=== PATIENT | male | born 1995 | race Caucasian/White ===

== ENCOUNTER 2018-01-19 17:41 | Emergency (ER) | payer OTHER ==
[2018-01-19 17:48] VITALS: BP 132/90
[2018-01-19] MEDS ORDERED: Tetan/Diph/Pertus SYR(Tdap)* 0.5 ML SYR(BOOSTRIX) use SYR IM ONE (19:07)
--- NOTE | 2018-01-19 19:14 | ED ---
Laceration/Wound HPI - HPI Summary HPI Summary: Patient is a 22-year-old male who presents emergency department for a laceration to his left thumb that occurred just prior to arrival. Patient states he was taking glass out of a window pane when the glass broke and cut thumb. He is unaware of his last tetanus immunization. Past medical history of type 1 diabetes. Patient thinks there could possibly be piece of glass in the wound. Symptoms are mild in severity. Touching wound makes symptoms worse. Rest makes symptoms better. - History of Current Complaint Stated Complaint: LT THUMB LAC Time Seen by Provider: 01/19/18 18:39 Hx Obtained From: Patient Pain Intensity: 2 - Allergy/Home Medications Allergies/Adverse Reactions: Allergies Allergy/AdvReac Type Severity Reaction Status Date / Time No Known Allergies Allergy Verified 01/19/18 17:48 Home Medications: Home Medications Insulin ASPART (NF) [Novolog (NF)] 0 units SUBCUT .CONSTANT VIA PUMP 01/19/18 [ History Confirmed 01/19/18] PMH/Surg Hx/FS Hx/Imm Hx Previously Healthy: Yes Infectious Disease History: No Infectious Disease History: Denies: Traveled Outside the [place] in Last 30 Days - Social History Alcohol Use: None Substance Use Type: Reports: Marijuana Substance Use Comment - Amount & Last Used: occas Smoking Status (MU): Never Smoked Tobacco Review of Systems Positive: Other - laceration to left thumb Positive: Other - laceration to left thumb Negative: Weakness, Paresthesia, Numbness All Other Systems Reviewed And Are Negative: Yes Physical Exam Triage Information Reviewed: Yes Vital Signs On Initial Exam: Initial Vitals Temp Pulse Resp BP Pulse Ox 99.0 F 94 17 132/90 98 01/19/18 17:45 01/19/18 17:45 01/19/18 17:45 01/19/18 17:45 01/19/18 17:45 Vital Signs Reviewed: Yes Appearance: Positive: Well-Appearing - Patient sitting up in bed in no acute distress. Skin: Positive: Warm, Dry Head/Face: Positive: Normal Head/Face Inspection Eyes: Positive: Normal Neck: Positive: Supple Musculoskeletal: Positive: Other - Less than 1 cm, full-thickness, flap laceration noted to the dorsal lateral aspect of the left mid thumb. Full strength with flexion, extension, adduction and abduction. Mild active bleeding. Neurological: Positive: Normal, CN Intact II-III Psychiatric: Positive: Normal Procedures - Laceration/Wound Repair 1 Location: Other - Left thumb Description: Irregular Anesthesia: Local, 1.0%, Lido Length, Depth and Shape: 1cm skin flap Betadine Prep?: No - Hibiclens Laceration/Wound Explored: clean, no foreign body removed Closure: Single Layer Suture Type: Nylon - 4-0 Number of Sutures: 4 Layer Closure?: No Sterile Dressing Applied?: Yes Diagnostics - Vital Signs Vital Signs Temp Pulse Resp BP Pulse Ox 01/19/18 17:45 99.0 F 94 17 132/90 98 - Laboratory Lab Statement: Any lab studies that have been ordered have been reviewed, and results considered in the medical decision making process. Laceration Repair Course/Dx - Course Course Of Treatment: Patient presenting to the emergency department for a simple finger laceration. No tendon involvment. X-ray was obtained to evaluate for foreign body. X-ray reviewed and is negative for foreign body or acute findings. Wound was repaired as above. Tetanus was updated. Suture removal in 7-10 days. Keep the wound clean and dry. To return to the ER for redness, swelling or drainage from wound. Patient understands and agrees with plan. - Clinical Impression Provider Diagnoses: Finger laceration Discharge - Sign-Out/Discharge Documenting (check all that apply): Discharge/Admit/Transfer - Discharge Plan Condition: Good Disposition: HOME Patient Education Materials: Laceration (ED) Referrals: On License Of [facility] - Michael HARRIS [Primary Care Provider] - Additional Instructions: Suture removal in 7-10 days Keep wound clean and dry Return to the ER for redness, swelling or drainage from wound - Billing Disposition and Condition Condition: GOOD Disposition: HOME
--- NOTE | 2018-01-19 19:19 | RAD ---
INDICATION: Foreign body left thumb. TECHNIQUE: 3 views of the left thumb were obtained. FINDINGS: There is bandage or gauze material which projects overlying the proximal and distal phalanges limiting the study. The bones are normal. No fracture is seen. No radiopaque foreign body is noted. IMPRESSION: LIMITED STUDY, NO FOREIGN BODY IS SEEN.
== END 2018-01-19 20:11 | disposition home or self-care (01) ==
LOC: EDBD → ED 17:41
DX: S61.012A Laceration without foreign body of left thumb without damage to nail, initial encounter (principal); W25.XXXA Contact with sharp glass, initial encounter; Y93.89 Activity, other specified; Y92.9 Unspecified place or not applicable; Z23 Encounter for immunization
CPT/HCPCS: 12001; 90471; 90715; 99282